=== PATIENT | female | born 1990 | race Caucasian/White ===

== ENCOUNTER → 2022-08-25 | Outpatient (REF) | payer OTHER | LOC: M LAB REF 19:02 | PROVIDERS: ATTEND Student in an Organized Health Care Education/Training Program | DX: R30.0 Dysuria (principal) ==

== ENCOUNTER 2024-05-07 19:34 | Emergency (ER) | payer OTHER ==
[~2024-05-07] VITALS: Ht 154.9 cm; Wt 83.6 kg
[2024-05-07 19:36] VITALS: BP 135/81; TEMP 97.8; O2SAT 99
== END 2024-05-08 00:36 | disposition left against medical advice (07) ==
LOC: M ED 23:59
DX: Z53.21 Procedure and treatment not carried out due to patient leaving prior to being seen by health care provider (principal)